=== PATIENT | female | born 1940 | race Caucasian/White ===

== ENCOUNTER 2017-01-09 10:00 | Emergency (ER) | payer OTHER ==
[~2017-01-09] VITALS: Ht 152.4 cm; Wt 52.2 kg
[2017-01-09 10:04] VITALS: BP 188/77
--- NOTE | 2017-01-09 10:36 | ED HEAD/FACIAL INJ COMPLAINT ---
History of Present Illness General Chief Complaint: Fall Stated Complaint: FALL LAC TO HEAD NO LOC Source: patient, family Exam Limitations: no limitations Vital Signs & Intake/Output Vital Signs & Intake/Output Vital Signs Date Time Temp Pulse Resp B/P B/P Pulse O2 O2 Flow FiO2 Mean Ox Delivery Rate 01/09 1004 96.1 77 20 188/77 98 Room Air Allergies Coded Allergies: NO KNOWN ALLERGIES (07/10/12) Triage Note: PT TO ED WITH DAUGTHER FOR LAC TO LEFT SIDE OF HEAD. PT WITH H/O PARKINSONS, WALKS WITH WALKER, DAUGHTER STATES TRIP AND FALL INTO THE COFFEE TABLE. NO LOC. LAC NOTED TO LEFT SIDE OF HEAD. UNKNOWN LAST TETANUS SHOT. Triage Nurses Notes Reviewed? yes HPI: Patient has a history of Parkinson's and she tripped over her whole feet and fell and hit her head. There was no loss of consciousness. There's been no nausea or vomiting. Her daughter witnessed the event and states that she has been acting appropriately since the fall. Patient is complaining of a laceration to the left side of her head. Patient has no other complaints. Patient denies any pain. Past History Travel History Traveled to [place] past 21 day No Medical History Any Pertinent Medical History? see below for history Neurological: dementia, Parkinson's disease Cardiovascular: hyperlipidemia Endocrine: hypothyroidism Surgical History Surgical History: non-contributory Psychosocial History What is your primary language Ukrainian Tobacco Use: Quit >30 days ago ETOH Use: denies use Illicit Drug Use: denies illicit drug use Family History Hx Contributory? No Review of Systems Review of Systems Constitutional: Reports: no symptoms. EENTM: Reports: no symptoms. Respiratory: Reports: no symptoms. Cardiovascular: Reports: no symptoms. GI: Reports: no symptoms. Genitourinary: Reports: no symptoms. Musculoskeletal: Reports: no symptoms. Skin: Reports: no symptoms. Neurological/Psychological: Reports: no symptoms. Hematologic/Endocrine: Reports: no symptoms. Immunologic/Allergic: Reports: no symptoms. All Other Systems: Reviewed and Negative Physical Exam Physical Exam General Appearance: well developed/nourished, mild distress Head: lacerations Eyes: Bilateral: PERRL, EOMI. Ears, Nose, Throat: normal pharynx, normal ENT inspection, hearing grossly normal Neck: normal inspection, supple, no midline tenderness Respiratory: normal breath sounds Cardiovascular: regular rate/rhythm Gastrointestinal: soft, non-tender Back: normal inspection Extremities: normal inspection, normal range of motion, no edema Psychiatric: awake, alert, oriented x 3 Cranial Nerves: normal hearing, normal speech, PERRL Motor/Sensory: no motor/sensory deficits Skin: intact, normal color, warm/dry Lymphatic: no anterior cervical red Progress Differential Diagnosis: ICH, LACERATION Plan of Care: MARYANN Departure Departure Disposition: HOME OR SELF CARE Condition: Stable Clinical Impression Primary Impression: Head injury Referrals: SOCORRO GARCIA,LUCHO Hay (PCP/Family) Additional Instructions: HAVE MARYANN REMOVED IN 7 DAYS RETURN SOONER FOR ANY CONCERNS Departure Forms: Customer Survey General Discharge Information Procedures Laceration/Wound Repair Laceration/Wound Repair: Wound Location: head Wound's Depth, Shape: linear Wound Length (cm): 2 Wound Explored: clean Betadine Prep? Yes Suture Size/Type: maryann Number of Sutures: 3 Layer Closure? No
== END 2017-01-09 10:39 ==
LOC: ERH 10:00
DX: S09.90XA Unspecified injury of head, initial encounter (principal); S01.01XA Laceration without foreign body of scalp, initial encounter; W01.0XXA Fall on same level from slipping, tripping and stumbling without subsequent striking against object, initial encounter; Y93.01 Activity, walking, marching and hiking; Y92.9 Unspecified place or not applicable